=== PATIENT | female | born 1955 | race Caucasian/White ===

== ENCOUNTER 2018-12-17 14:47 | Emergency (ER) | payer BC, MEDICARE ==
[~2018-12-17] VITALS: Ht 162.6 cm; Wt 72.6 kg
[2018-12-17] MEDS ORDERED: GABA400 PO (17:45)
[2018-12-17] MEDS ORDERED: NITR.4SL SL (17:46)
[2018-12-17] MEDS ORDERED: Norco 10-325 T1 EACH PO (17:46)
[2018-12-17] MEDS ORDERED: ROPI.25 (17:46)
[2018-12-17] MEDS ORDERED: ATOR80 PO (17:47)
[2018-12-17] MEDS ORDERED: CLOP75 PO (17:47)
[2018-12-17] MEDS ORDERED: FURO20 PO (17:47)
[2018-12-17] MEDS ORDERED: ASPI325EC (17:47)
[2018-12-17] MEDS ORDERED: METO50ER PO (17:47)
[2018-12-17] MEDS ORDERED: CETI5 (17:48)
[2018-12-17] MEDS ORDERED: ALLO100 PO (17:48)
[2018-12-17] MEDS ORDERED: Cleocin HCl300 MG PO (19:38)
== END 2018-12-17 19:59 | disposition home or self-care (01) ==
LOC: ER 14:47
DX: M70.22 Olecranon bursitis, left elbow (principal); Z88.1 Allergy status to other antibiotic agents; Z88.8 Allergy status to other drugs, medicaments and biological substances; Z79.899 Other long term (current) drug therapy
CPT/HCPCS: 20605; 84560; 87070; 87077; 87186; 87205; 99283-25

== ENCOUNTER 2018-12-19 08:55 | Emergency (ER) | payer BC, MEDICARE ==
[~2018-12-19] VITALS: Ht 162.6 cm; Wt 72.6 kg
[~2018-12-19 08:55] MED LIST: ALLO100 PO; ASPI325EC; ATOR80 PO; CETI5; CLOP75 PO; Cleocin HCl300 MG PO; FURO20 PO; GABA400 PO; METO50ER PO; NITR.4SL SL; Norco 10-325 T1 EACH PO; ROPI.25
== END 2018-12-19 09:28 | disposition home or self-care (01) ==
LOC: ER 08:55
DX: Z48.817 Encounter for surgical aftercare following surgery on the skin and subcutaneous tissue (principal)
CPT/HCPCS: 99282